=== PATIENT | female | born 1930 | race Caucasian/White ===

== ENCOUNTER 2017-08-02 12:41 | Emergency (ER) | payer OTHER, MEDICARE ==
[~2017-08-02 12:41] MED LIST: AMLO5TAB2 PO; LISI-613 PO
== END 2017-08-02 14:28 | disposition home or self-care (01) ==
LOC: EDH 12:41
DX: S93.491A Sprain of other ligament of right ankle, initial encounter (principal); M25.551 Pain in right hip; F03.90 Unspecified dementia, unspecified severity, without behavioral disturbance, psychotic disturbance, mood disturbance, and anxiety; X58.XXXA Exposure to other specified factors, initial encounter; Y93.89 Activity, other specified; Y92.89 Other specified places as the place of occurrence of the external cause; Y99.8 Other external cause status
CPT/HCPCS: 73502; 73610; 73630